=== PATIENT | male | born 1930 | race Caucasian/White ===

== ENCOUNTER 2017-01-10 18:49 | Inpatient (IN) | payer OTHER, BC ==
[~2017-01-10] VITALS: Ht 182.9 cm; Wt 101.7 kg
[~2017-01-10 18:49] MED LIST: BACTRIM,SEPT1 TABLET PO; CALTRATE 600600 MG PO; CEFDINIR300 MG PO; COUMADIN3 MG PO; DUONEB 2.5-0.5 M3 ML IH; FEROSUL325 MG PO; FUROSEMIDE40 MG PO; IPRATR-ALBUTEROL3 ML IH; IRON325 M1 PO; JANTOVEN2 MG PO; K-DUR20 MEQ PO; LASIX20 MG PO; LATANOPROST2.5 ML BOTH EYES; LEVOTHYROXINE175 MCG PO; LOPRESSOR50 MG PO; METOPROLOL SUCC50 MG PO; METOPROLOL TART50 MG PO; NEXIUM40 MG PO; POTASSIUM CHLO20 ME2 PO; PREDNISONE20 MG PO; PRESERVISIO1 CAPSULE PO; PRESERVISION T1 EACH PO; PRINIVIL10 MG PO; SIMVASTATIN20 MG PO; SYNTHROID200 MCG PO; TYLENOL EXTRA500 MG PO; WARFARIN SODIUM3 MG PO; WARFARIN SODIUM4 MG PO; XALATAN 0.50 DROP/2.; XALATAN2.5 ML BOTH EYES; ZOCOR20 MG PO
[2017-01-10 19:56] LABS: EOSINOPHIL (%) 1.3 % (0-5); EOSINOPHIL COUNT 0.1 K/uL (0-0.3); HEMATOCRIT 34.9 % (38.0-50.0); IMMATURE GRANULOCYTE (%) 0.6 % (0.0-0.7); IMMATURE GRANULOCYTE COUNT 0.1 K/uL; MCH 29.8 PG (29.0-34.0); MCHC 31.8 G/DL (30.0-36.0); MCV 93.6 FL (86-99); MEAN PLAT.VOLUME 10.4 uM^3 (9.0-12.4); MONOCYTE (%) 11.2 % (3-12); MONOCYTE COUNT 1.2 K/uL (0-0.8); NEUTROPHIL (%) 76.7 % (45-76); PLATELET COUNT 378 K/uL (156-360); RBC DIS.WIDTH-CV 16.4 % (11.8-14.6); RBC DIS.WIDTH-SD 56.4 % (39-53); RED BLOOD COUNT 3.73 M/uL (4.00-5.50); WHITE BLOOD COUNT 10.4 K/uL (4.1-10.2)
[2017-01-10 20:08] LABS: CHLORIDE 98 mEq/L (99-109); POTASSIUM 4.1 mEq/L (3.7-5.4); SODIUM 138 mEq/L (136-147)
[2017-01-10 20:09] LABS: ADD MIUA? NO; BILIRUBIN NEGATIVE; BLOOD NEGATIVE; COLOR YELLOW ((YELLOW)); GLUCOSE (STRIP) NEGATIVE; KETONES NEGATIVE; LEUKOCYTES NEGATIVE; NITRITE NEGATIVE; PROTEIN (STRIP) NEGATIVE; SPECIFIC GRAVITY 1.013 (1.000-1.030); UCUL ADDED? NO; UROBILINOGEN 0.2 MG/DL (0.2-1.0)
[2017-01-10 20:10] LABS: GLUCOSE 97 mg/dL (70-99)
[2017-01-10 20:11] LABS: ANION GAP 11 MEQ/L (2-14)
[2017-01-10 20:12] LABS: TOTAL BILIRUBIN 0.7 mg/dL (0.0-1.0)
[2017-01-10 20:13] LABS: ALKALINE PHOSPHATASE 325 IU/L (3-129)
[2017-01-10 20:14] LABS: GFR ESTIMATE (CALCULATED) > 59 mL/min/
[2017-01-10 20:15] LABS: UREA NITROGEN (BUN) 16 mg/dL (9-23)
[2017-01-10 20:17] LABS: TROP-I INTERPRETATION NEGATIVE; TROPONIN-I < 0.01 ng/mL (0.0-0.30)
[2017-01-10] MEDS ORDERED: COUMADIN1 MG PO (21:21)
[2017-01-10] MEDS ORDERED: LEVOTHYROXINE200 MC1 PO (21:22)
[2017-01-10] MEDS ORDERED: CALTRATE PLUS1 EACH PO (21:24)
[2017-01-10 22:18] LABS: INTER. NORMALIZED RATIO 2.8; PROTHROMBIN TIME 29.3 (9.2-11.2)
[2017-01-10 23:20] LABS: BASE EXCESS 6.7 mEq/L (-3 to +3); BICARBONATE 31.3 mEq/L (22-26); CARBOXY HGB 2.5 % (0-5); COMMENTS - BLOOD GASES A+C+; DEVICE NC; METHEMOGLOBIN 1.1 % (0-1.5); O2 FLOW 2 L/MIN; PCO2 44 mm Hg (35-45); PO2 63 mm Hg (80-100); SITE RR; pH 7.46 (7.35-7.45)
[2017-01-11] VITALS (7 sets, daily range): BP systolic 90–120; BP diastolic 50–61
[2017-01-11 03:27] LABS: TROP-I INTERPRETATION NEGATIVE; TROPONIN-I < 0.01 ng/mL (0.0-0.30)
[2017-01-11 09:28] LABS: HEMATOCRIT 32.3 % (38.0-50.0); MCH 29.5 PG (29.0-34.0); MCHC 31.6 G/DL (30.0-36.0); MCV 93.4 FL (86-99); MEAN PLAT.VOLUME 10.6 uM^3 (9.0-12.4); PLATELET COUNT 377 K/uL (156-360); RBC DIS.WIDTH-CV 16.7 % (11.8-14.6); RBC DIS.WIDTH-SD 56.6 % (39-53); RED BLOOD COUNT 3.46 M/uL (4.00-5.50); WHITE BLOOD COUNT 10.9 K/uL (4.1-10.2)
[2017-01-11 09:50] LABS: TROP-I INTERPRETATION NEGATIVE; TROPONIN-I < 0.01 ng/mL (0.0-0.30)
[2017-01-11 09:52] LABS: ALKALINE PHOSPHATASE 307 IU/L (3-129); ANION GAP 9 MEQ/L (2-14); CHLORIDE 99 MEQ/L (99-109); GFR ESTIMATE (CALCULATED) > 59 mL/min/; GLUCOSE 83 mg/dL (70-99); POTASSIUM 3.6 MEQ/L (3.7-5.4); SAMPLE HEMOLYSIS CHECK 0; SAMPLE ICTERIC CHECK 0; SAMPLE LIPEMIA CHECK 0; SODIUM 138 MEQ/L (136-147); TOTAL BILIRUBIN 0.6 MG/DL (0.0-1.0); UREA NITROGEN (BUN) 13 mg/dL (9-23)
[2017-01-11 10:15] LABS: INTER. NORMALIZED RATIO 2.9; PROTHROMBIN TIME 30.6 (9.2-11.2)
[2017-01-12 03:15] VITALS: BP 94/55
[2017-01-12 07:14] LABS: INTER. NORMALIZED RATIO 3.4; PROTHROMBIN TIME 35.6 (9.2-11.2)
[2017-01-12 09:00] VITALS: BP 106/58
[2017-01-12 11:20] VITALS: BP 96/47
[2017-01-12 14:30] VITALS: BP 105/56
[2017-01-12 20:00] VITALS: BP 94/31
[2017-01-13] VITALS (7 sets, daily range): BP systolic 96–116; BP diastolic 45–61
[2017-01-13 06:53] LABS: HEMATOCRIT 32.9 % (38.0-50.0); MCH 29.5 PG (29.0-34.0); MCHC 31.3 G/DL (30.0-36.0); MCV 94.3 FL (86-99); MEAN PLAT.VOLUME 10.7 uM^3 (9.0-12.4); PLATELET COUNT 381 K/uL (156-360); RBC DIS.WIDTH-CV 16.6 % (11.8-14.6); RBC DIS.WIDTH-SD 57.4 % (39-53); RED BLOOD COUNT 3.49 M/uL (4.00-5.50)
[2017-01-13 07:08] LABS: INTER. NORMALIZED RATIO 3.3; PROTHROMBIN TIME 34.8 (9.2-11.2)
[2017-01-13 07:24] LABS: ALKALINE PHOSPHATASE 232 IU/L (3-129); ANION GAP 10 MEQ/L (2-14); CHLORIDE 103 MEQ/L (99-109); GFR ESTIMATE (CALCULATED) > 59 mL/min/; GLUCOSE 82 mg/dL (70-99); POTASSIUM 3.6 MEQ/L (3.7-5.4); SAMPLE HEMOLYSIS CHECK 0; SAMPLE ICTERIC CHECK 0; SAMPLE LIPEMIA CHECK 0; SODIUM 139 MEQ/L (136-147); TOTAL BILIRUBIN 0.6 MG/DL (0.0-1.0); UREA NITROGEN (BUN) 9 mg/dL (9-23)
[2017-01-13 08:24] LABS: DIGOXIN 0.7 ng/mL (0.8-2.0)
[2017-01-14 04:12] VITALS: BP 111/67
[2017-01-14 06:55] LABS: INTER. NORMALIZED RATIO 3.7; PROTHROMBIN TIME 38.8 (9.2-11.2)
[2017-01-14] MEDS ORDERED: DIGOXIN250 MCG PO (08:14)
[2017-01-14 09:25] VITALS: BP 115/64
[2017-01-14 11:05] VITALS: BP 99/55
== END 2017-01-14 16:10 | disposition hospice, home (50) | DRG 309 ==
LOC: EME → EDBD 18:49 → EME 18:49 → EDOF 22:48 → 4EAST 22:48
PROVIDERS: Emergency Medicine; Internal Medicine
DX: I48.2 Chronic atrial fibrillation (principal); R41.82 Altered mental status, unspecified; E46 Unspecified protein-calorie malnutrition; I95.9 Hypotension, unspecified; J44.9 Chronic obstructive pulmonary disease, unspecified; G47.33 Obstructive sleep apnea (adult) (pediatric); Z99.81 Dependence on supplemental oxygen; I10 Essential (primary) hypertension; Z85.850 Personal history of malignant neoplasm of thyroid; I45.10 Unspecified right bundle-branch block; R26.2 Difficulty in walking, not elsewhere classified; E78.00 Pure hypercholesterolemia, unspecified; E03.9 Hypothyroidism, unspecified; Z91.19 Patient's noncompliance with other medical treatment and regimen; C61 Malignant neoplasm of prostate; C79.51 Secondary malignant neoplasm of bone; F32.9 Major depressive disorder, single episode, unspecified; K21.9 Gastro-esophageal reflux disease without esophagitis; Z87.891 Personal history of nicotine dependence; L89.321 Pressure ulcer of left buttock, stage 1; Z74.01 Bed confinement status; E86.0 Dehydration; L89.621 Pressure ulcer of left heel, stage 1; E87.6 Hypokalemia; E88.09 Other disorders of plasma-protein metabolism, not elsewhere classified; D64.9 Anemia, unspecified; L30.9 Dermatitis, unspecified; R06.00 Dyspnea, unspecified; D68.32 Hemorrhagic disorder due to extrinsic circulating anticoagulants; T45.515A Adverse effect of anticoagulants, initial encounter
CPT/HCPCS: 36600; 70450; 71010; 71250; 80053; 80162; 81003; 82803; 83605; 83880; 84484; 85025; 85027; 85610; 87040; 93005; 94640; 94640 76; 94760; 94799; 99202; 99281; 99285; J1160; J7030; J9217